=== PATIENT | female | born 1995 | race Caucasian/White ===

== ENCOUNTER 2017-05-23 18:22 | Emergency (ER) | payer OTHER ==
[2017-05-23 18:36] VITALS: BP 101/61; PULSE 94; TEMP 97.5; BMI 25.7
--- NOTE | 2017-05-23 19:11 | PDOC ---
History of Present Illness - General Chief Complaint: Asthma Stated Complaint: sob/wheezing Time Seen by Provider: 05/23/17 19:04 History Source: Patient Exam Limitations: No Limitations - History of Present Illness Initial Comments: 05/23/17 19:18 This is a 22-year-old female who comes in complaining of a shortness of breath and chest tightness since last night. Patient has a history of asthma. Patient said she's had to use her inhaler approximately 4 times which is unusual for her to. Patient said even with use of her inhaler she still feels some tightness in her chest and shortness of breath. Patient otherwise denies any cough, congestion, fever, chills, nausea, diaphoresis. Patient denies any use of illegal street drugs. Patient says she is otherwise healthy exercises and works out and normally does not have shortness of breath. PAST MEDICAL HISTORY: Asthma as per history of present illness PAST SURGICAL HISTORY: no significant history FAMILY HISTORY: no pertinant history SOCIAL HISTORY: Pt lives with family and is employed. MEDICATIONS: reviewed ALLERGIES: As per nursing notes Review of Systems General: No fevers or chills, no weakness, no weight loss HEENT: No change in vision. No sore throat,. No ear pain CardioVascular: No chest pain or shortness of breath Respiratory: Shortness of breath, wheezing and chest tightness Gastrointestinal: no nausea, vomitting, diarrhea or constipation, No rectal bleeding Genitourinary: No dysuria, hematuria, or frequency Musculoskeletal: No joint or muscle pain or swelling Neurologic: No headache, vertigo, dizziness or loss of consciousness Psychiatric: nor depression Skin: No rashes or easy bruising Endocrine: no increased thirst or abnormal weight change Allergic: no skin or latex allergy All other systems reviewed and normal Exam: General: Well-nourished well-developed individual, no acute distress HEENT: Throat: Normal, tonsils normal, no erythema or exudate Neck: Supple, no meningeal signs, no lymphadenopathy Eyes::Pupils equal reactive and round, extraocular motion intact Chest: Nontender to palpation Cardiac: S1-S2 normal, regular rate and rhythm, no murmurs rubs or gallops Respiratory: There is decreased air entry bilateral with x-ray rate greater than inspiratory rate and the expiratory wheezing bilateral primarily at the bases Abdomen: Soft, nondistended, normal bowel sounds, nontender to palpation diffusely Extremities: Warm, dry, no cyanosis, clubbing, or edema Skin: No rashes Neuro: Alert and oriented x3, nonfocal exam, grossly intact, normal gait Psych: Normal mood and affect 05/23/17 20:40 Chest x-ray no acute pathology questionable hyperinflation Reassessment, lungs are now clear patient feels much better Assessment and plan: This is a 22-year-old female comes in complaining of shortness of breath/asthma exacerbation. Patient said this was in a typical exacerbation for her as it was worse than usual and she was using her inhaler more than she normally does. Patient was given some prednisone and DuoNeb's with improvement and resolution of her wheezing. A chest x-ray showed no acute pathology other than some mild hyperinflation Patient discharged home with a prescription for short dose of steroids and told to continue her inhaler as needed. 05/23/17 21:05 Past History - Past Medical History Allergies/Adverse Reactions: Allergies Allergy/AdvReac Type Severity Reaction Status Date / Time No Known Allergies Allergy Verified 05/23/17 18:24 Home Medications: Ambulatory Orders Albuterol Sulfate Inhaler - [Ventolin Hfa Inhaler -] 1 inh PO ASDIR 05/23/17 Loratadine [Claritin] 10 mg PO DAILY 05/23/17 Asthma: Yes - Immunization History Immunization Up to Date: Yes (2010) - Psycho/Social/Smoking Cessation Hx Anxiety: No Suicidal Ideation: No Smoking History: Never smoked Have you smoked in the past 12 months: No Hx Alcohol Use: No Drug/Substance Use Hx: No Substance Use Type: None *Physical Exam - Vital Signs Last Vital Signs Temp Pulse Resp BP Pulse Ox 97.5 F L 94 H 18 101/61 99 05/23/17 18:23 05/23/17 18:23 05/23/17 18:23 05/23/17 18:23 05/23/17 18:23 *DC/Admit/Observation/Transfer Diagnosis at time of Disposition: Exacerbation of asthma - Discharge Dispostion Disposition: HOME Condition at time of disposition: Stable Admit: No - Patient Instructions Printed Discharge Instructions: Asthma -- Adult Additional Instructions: Use your inhaler as often as 2 puffs every 4 hours if needed. In addition to your inhaler take and is on 40 mg a day for the next 4 days take your next dose tomorrow morning as you were given a dose here in the ER [facility]. If you continue to have persistent symptoms of asthma and frequent exacerbations of asthma follow-up with a household personal assistant for additional help in medications to manage her asthma Return to the emergency department immediately with ANY new, persistent or worsening symptoms. Continue any medications as previously prescribed by your physician. You should follow up with your primary doctor as soon as possible regarding today's emergency department visit. . Please make sure your doctor reviews the results of your emergency evaluation. Thank you for coming to the Emergency Department today for your care. It was a pleasure to see you today. Please note that your evaluation is INCOMPLETE until you follow-up with your doctor.
[2017-05-23] MEDS ORDERED: predniSONE 20 MG TABLET (UD) PO ONE (19:17)
[2017-05-23] MEDS ORDERED: ALBUTEROL SO4 2.5/IPRATROPIUM 0.5 INH SOL 3 ML VIAL.NEB. NEB ONE ×2 (19:31→20:23)
[2017-05-23] MEDS ORDERED: predniSONE 20 MG TABLET (UD) ONE (19:32)
[2017-05-23] MEDS: ALBUTEROL SO4 2.5/IPRATROPIUM 0.5 INH SOL 3 ML VIAL.NEB. NEB SCH ×2 (19:37→20:24)
== END 2017-05-23 21:23 | disposition home or self-care (01) ==
LOC: FER 18:22
PROC: 3E0F7GC Introduction of Other Therapeutic Substance into Respiratory Tract, Via Natural or Artificial Opening (ICD-10-PCS; principal; 2017-05-23)
DX: J45.901 Unspecified asthma with (acute) exacerbation (principal)
CPT/HCPCS: 71020-TC; 84703; 99281-25

== ENCOUNTER 2017-07-14 21:22 | Emergency (ER) | payer OTHER ==
[2017-07-14] MEDS ORDERED: ALBUTEROL SO4 2.5/IPRATROPIUM 0.5 INH SOL 3 ML VIAL.NEB. NEB ONE ×2 (21:25→23:17)
[2017-07-14 21:30] VITALS: BP 124/74; PULSE 82; TEMP 97.8; BMI 27.4
--- NOTE | 2017-07-14 23:20 | PDOC ---
History of Present Illness - General Chief Complaint: Asthma Stated Complaint: ASTHMA Time Seen by Provider: 07/14/17 21:31 - History of Present Illness Initial Comments: This 22-year-old woman with a history of asthma since childhood who presents with a few day history of worsening wheezing. Patient states that her asthma was in active for many years until approximately 3 months ago when she began having wheezing. She used her albuterol rescue inhaler but continued to have symptoms and presented here. She was started on prednisone which was helpful for her symptoms. She subsequently saw a general doctor who started her on Advair, also with relief of her wheezing. She was referred to a assistant manager retail but states that she was unable to see this doctor until next month. Meanwhile, the patient has intermittent cough, productive of scant whitish sputum. No fever/chills and no antecedent upper respiratory symptoms. She states that there appears to be no clear triggering of her asthma symptoms (i.e. she did not recently move or have new furnishings in her house/get new pet, etc.) Past History - Past Medical History Allergies/Adverse Reactions: Allergies Allergy/AdvReac Type Severity Reaction Status Date / Time No Known Allergies Allergy Verified 07/14/17 21:23 Home Medications: Ambulatory Orders Albuterol Sulfate Inhaler - [Ventolin Hfa Inhaler -] 1 inh PO ASDIR 05/23/17 Cetirizine HCl [Zyrtec -] 10 mg PO DAILY 07/14/17 Prednisone [Deltasone -] 40 mg PO DAILY #10 tablet 07/15/17 Asthma: Yes - Immunization History Immunization Up to Date: Yes (2010) - Suicide/Smoking/Psychosocial Hx Smoking History: Never smoked Have you smoked in the past 12 months: No Information on smoking cessation initiated: No Hx Alcohol Use: Yes (SOCIAL) Drug/Substance Use Hx: No Substance Use Type: None Review of Systems - Review of Systems Able to Perform ROS?: Yes Comments:: 12 point review of systems is negative except for what is noted in the history of present illness *Physical Exam - Vital Signs Last Vital Signs Temp Pulse Resp BP Pulse Ox 97.8 F 82 16 124/74 94 L 07/14/17 21:26 07/14/17 21:26 07/14/17 21:26 07/14/17 21:26 07/14/17 21:26 - Physical Exam Comments: GENERAL: Adult female, alert and oriented 3, in mild distress secondary to wheezing; able to speak in full sentences HEAD: Normal with no signs of trauma. EYES: PERRLA, EOMI, sclera anicteric, conjunctiva clear. ENT: Ears normal, nares patent, oropharynx clear without exudates. Dry mucous membranes. NECK: Normal range of motion, supple without lymphadenopathy, JVD, or masses. LUNGS: expiratory wheezing throughout both lung russell HEART:Regular rate and rhythm, normal S1 and S2 without murmur, rub or gallop. ABDOMEN:.normal bowel sounds No guarding,tenderness or rebound.No masses No distention. EXTREMITIES: Normal range of motion, no edema. No clubbing or cyanosis. No erythema, or tenderness. NEUROLOGICAL: Cranial nerves II through XII grossly intact. Normal speech. No focal neurological deficits. MUSCULOSKELETAL: Back non-tender to palpation, no CVA tenderness SKIN: Warm, Dry, normal turgor, no rashes or lesions noted. ED Treatment Course - Medications Given in the ED: ED Medications Discontinued Medications Generic Name Dose Route Start Last Admin Trade Name Freq PRN Reason Stop Dose Admin Albuterol/Ipratropium 1 amp 07/14/17 21:25 07/14/17 21:26 Duoneb - NEB 07/14/17 21:26 1 amp NOW ONE Administration Progress Note - Progress Note Progress Note: Patient given duo neb nebulizer treatment to treat her bilateral expiratory wheezing. After the nebulizer treatment, although patient was moving air well, she had some residual bilateral wheezing on exam. Second DuoNeb treatment given. Solu-Medrol 125 mg IV administered. Medical Decision Making - Medical Decision Making Lung exam is essentially normal with some scattered expiratory wheezing but excellent air exchange after 2 nebulizer treatments of DuoNeb and 125 mg of Solu -Medrol. Patient will be discharged with prescriptions for prednisone 40 mg daily for the next 5 days. The patient will also be given referral information for Dr. Pierson. She should call the office tomorrow and for follow-up within the next few days. She should return to the emergency room if she has any recurrence of her wheezing or experiences shortness of breath/fever/severe cough. *DC/Admit/Observation/Transfer Diagnosis at time of Disposition: Asthma exacerbation - Discharge Dispostion Disposition: HOME Condition at time of disposition: Stable - Prescriptions Prescriptions: Prednisone [Deltasone -] 40 mg PO DAILY #10 tablet - Referrals Referrals: Pepe Pierson MD [Staff Physician] - Call tomorrow - Patient Instructions Printed Discharge Instructions: Asthma -- Adult Additional Instructions: Prednisone 40 mg daily for the next 5 days Use albuterol inhaler, 2 puffs every 4 hours as needed for wheezing Return to ER if you have persistent wheezing, severe cough or shortness of breath Call 's office in the morning to arrange follow-up appointment within 1 week - Post Discharge Activity Forms/Work/School Notes: Back to Work
[2017-07-14] MEDS ORDERED: methylPREDNISolone NA SUCC 125 MG/2 ML VIAL IVPB ONE (23:35)
[2017-07-14] MEDS ORDERED: methylPREDNISolone NA SUCC 125 MG/2 ML VIAL IVPUSH ONE (23:36)
[2017-07-14] MEDS ORDERED: methylPREDNISolone NA SUCC 125 MG/2 ML VIAL ONE (23:42)
== END 2017-07-15 00:15 | disposition home or self-care (01) ==
LOC: FER 21:22
PROC: 3E0F7GC Introduction of Other Therapeutic Substance into Respiratory Tract, Via Natural or Artificial Opening (ICD-10-PCS; principal; 2017-07-14)
PROC: 3E033GC Introduction of Other Therapeutic Substance into Peripheral Vein, Percutaneous Approach (ICD-10-PCS; 2017-07-14)
DX: J45.41 Moderate persistent asthma with (acute) exacerbation (principal)
CPT/HCPCS: 99281-25